=== PATIENT | female | born 1985 | race Caucasian/White ===

== ENCOUNTER → 2017-06-21 | Outpatient (CLI) | payer OTHER ==
--- NOTE | 2017-06-21 14:02 | REP ---
Clinical: Growth evaluation. Comparison: None . Findings: Examination demonstrates a single live intrauterine in cephalic presentation. motion is identified by technologist. Placenta is noted posteriorly and grade zero demonstrating complete placenta previa. Amniotic fluid volume is normal. Cervix measures 3.6 cm in length and appears closed. No evidence for nuchal cord. Gestational age by current measurements 18 weeks 5 days with XUAN 11/17/2017 . FHR equals 153 beats per minute. BPD 4.3 cm 18 weeks 6 days HC 16.9 cm 19 weeks 3 days AC 13.2 cm 18 weeks 5 days FL 2.7 cm 18 weeks 1 day HL 2.7 cm 18 weeks 5 days HC/AC ratio 1.28 Estimated weight 245 grams ( 38th percentile). Anatomical assessment is nondiagnostic due to technical factors and motion. Impression: Single live intrauterine in cephalic presentation. Posterior grade zero placenta with complete placenta previa. Anatomical assessment is incomplete and may warrant complete reevaluation. Signed by Sebastien Frausto MD 06/21/2017 01:53 P
== END ==
LOC: M RAD 12:14
PROVIDERS: ATTEND Obstetrics & Gynecology
DX: Z36 Encounter for antenatal screening of mother (principal); Z3A.18 18 weeks gestation of pregnancy

== ENCOUNTER → 2017-07-21 | Outpatient (CLI) | payer OTHER ==
--- NOTE | 2017-07-22 14:05 | REP ---
Clinical: Anatomical re-evaluation. Comparison: 06/21/2017 . Findings: Examination demonstrates a single live intrauterine in transverse (head to maternal left) presentation. motion is identified by technologist. Placenta is noted posteriorly and grade zero without evidence for placenta previa or abruption. Amniotic fluid volume is normal. Cervix measures 3.5 cm in length and appears closed. No evidence for nuchal cord. Gestational age by LMP 23 weeks 0 days with XUAN 11/17/2017 . Gestational age by current measurements 23 week 6 days with XUAN 11/11/2017 . FHR equals 146 beats per minute. Estimated weight 656 grams ( 77 percentile). Anatomical assessment demonstrates normal structures including cranium, choroid plexus, cavum, lungs, diaphragm, stomach, cord insertion/three-vessel cord, bladder, spine, and extremities. Impression: 1. Single live intrauterine in transverse lie demonstrating appropriate interval growth. 2. Limited evaluation of the posterior fossa, facial features, heart/ventricular outflow tracts and kidneys. Signed by Sebastien Frausto MD 07/22/2017 01:56 P
== END ==
LOC: M RAD 14:07
PROVIDERS: ATTEND Obstetrics & Gynecology
DX: Z36.9 Encounter for antenatal screening, unspecified (principal); Z3A.23 23 weeks gestation of pregnancy

== ENCOUNTER → 2017-08-19 | Outpatient (CLI) | payer OTHER, SELFPAY ==
--- NOTE | 2017-08-19 17:06 | REP ---
Obstetric sonography: History: Supervision of 27 weeks for anatomy. Comparison study July 21, 2017. Findings: Scanning demonstrates a viable single intrauterine gestation in a cephalic lie. motion is observed and heart rate is recorded at 140 beats per minute. The placenta is right lateral and posterior grade 1 without evidence of previa or abruption. Closed cervical length viewed transabdominally measures 3.9 cm. Amniotic fluid is subjectively normal. No extrauterine abnormalities observed. There has been greater than expected interval growth. Umbilical cord is seen draping over the shoulders and neck. Exam quality was inhibited by position and the patient body habitus. No anomaly is seen. The following anatomic structures are identified and felt to be unremarkable today: cranium, lungs, diaphragm, left-sided stomach, abdominal wall cord insertion, three-vessel cord, kidneys and bladder, upper and lower extremities. The four-chamber heart and outflow tract views and the face and profile views are still less than optimally seen. Cerebellum and posterior fossa and less than optimally seen. Biometry chart: BPD 7.7 cm = 30 weeks 6 days Head circumference 27.8 cm = 30 weeks 3 days Abdominal circumference 25.0 cm = 29 weeks 2 days Femur length 5.4 cm = 28 weeks 4 days Humeral length 5.3 cm = 30 weeks 6 days HC/AC ratio normal 1.11, cephalic index normal 0.78, estimated weight 1360 grams 2 pounds 15 ounces greater than 97th percentile for 27 weeks 1 day. MINA 7.2 cm S D ratio in the umbilical cord artery by Doppler is 2.19 (2.60-4.00). Impression: Viable single intrauterine gestation at 30 weeks with 0 days by today's composite criteria for expected gestational age estimate based on prior sonography is 27 weeks 1 day XUAN by prior sonography November 17, 2017. Estimated weight is in the 97th for 27 weeks 1 day. Less than optimal anatomic survey as above. Signed by Jhonatan Hoyos MD 08/19/2017 05:29 P
== END ==
LOC: M RAD 13:49
PROVIDERS: ATTEND Obstetrics & Gynecology
DX: Z36.2 Encounter for other antenatal screening follow-up (principal)

== ENCOUNTER → 2017-09-16 | Outpatient (CLI) | payer OTHER ==
--- NOTE | 2017-09-16 20:32 | REP ---
FOLLOWUP OBSTETRICAL ULTRASOUND: CLINICAL: Anatomical reevaluation and growth evaluation. COMPARISON: 08/19/2017 FINDINGS: Ultrasound examination demonstrates single live intrauterine in cephalic presentation. motion was identified by technologist. Placenta is noted posteriorly and grade 2 without evidence for placenta previa or abruption. Amniotic fluid volume is within normal limits. No evidence for nuchal cord. Gestational age by first ultrasound 31 weeks 1 day with estimated date of delivery 11/17/2017. Gestational age by current measurements 34 weeks 0 days with estimated date of delivery 10/28/2017. FHR 128 beats per minute. BPD 9.0 cm = 36 weeks 4 days HC 32.6 cm = 36 weeks 6 days AC 28.3 cm = 32 weeks 2 days FL 6.1 cm = 31 weeks 4 days HL 5.6 cm = 32 weeks 4 days HC/AC ratio 1.15. Estimated weight 2067 grams (79th percentile based on age by first ultrasound). Amniotic fluid index equals 9.1 cm (8.8 - 23.9 ). Anatomical assessment demonstrates normal cranium, choroid plexus, cavum, facial features, lungs, four-chamber heart, diaphragm, stomach, cord insertion/three-vessel cord, kidneys/bladder, and spine. IMPRESSION: Single live advanced gestation in cephalic presentation. Estimated weight is within normal limits. Amniotic fluid volume is lower limits of normal. No gross anatomical abnormalities are identified. Signed by Sebastien Frausto MD 09/17/2017 07:46 A
== END ==
LOC: M RAD 12:39
PROVIDERS: ATTEND Obstetrics & Gynecology
DX: Z34.82 Encounter for supervision of other normal pregnancy, second trimester (principal); Z3A.34 34 weeks gestation of pregnancy

== ENCOUNTER → 2017-10-14 | Outpatient (CLI) | payer OTHER | LOC: M RAD 12:12 | DX: O34.211 Maternal care for low transverse scar from previous cesarean delivery (principal); Z3A.35 35 weeks gestation of pregnancy | CPT/HCPCS: 76816 ==

== ENCOUNTER → 2017-10-25 | Outpatient (REF) | payer OTHER | LOC: M LAB REF 16:58 | DX: Z34.83 Encounter for supervision of other normal pregnancy, third trimester (principal) ==

== ENCOUNTER 2017-11-10 05:36 | Inpatient (IN) | payer OTHER ==
[2017-11-10] MEDS: LR 1,000 ML IV ×4 (06:45→15:00)
[2017-11-10 06:48] LABS: HEMATOCRIT 35.2 % (36.0-47.0); HEMOGLOBIN 11.9 g/dl (12.0-16.0); MEAN CORPUSCULAR HEMOGLOBIN 28.1 pg (27.0-33.0); MEAN CORPUSCULAR HGB CONC 33.8 g/dl (32.0-36.5); MEAN CORPUSCULAR VOLUME 83.2 fl (80.0-96.0); PLATELET COUNT, AUTOMATED 268 10^3/uL (150-450); RED BLOOD COUNT 4.23 10^6/uL (4.00-5.40); RED CELL DISTRIBUTION WIDTH 13.6 % (11.5-14.5); WHITE BLOOD COUNT 10.3 10^3/uL (4.0-10.0)
[2017-11-10 07:12] LABS: AMPHETAMINES URINE REFLEX NEGATIVE (NEGATIVE); BARBITURATES URINE REFLEX NEGATIVE (NEGATIVE); BENZODIAZEPINES URINE REFLEX NEGATIVE (NEGATIVE); CANNABINOIDS URINE REFLEX NEGATIVE (NEGATIVE); COCAINE METABOLITE URINE REFLE NEGATIVE (NEGATIVE); METHADONE URINE REFLEX NEGATIVE (NEGATIVE); OPIATES URINE REFLEX NEGATIVE (NEGATIVE); PHENCYCLIDINE URINE REFLEX NEGATIVE (NEGATIVE)
[2017-11-10] MEDS ORDERED: OXYTOCIN INJ 10 UNITS/ML VIAL (J2590) As Ordered ×4 (07:20→09:40)
[2017-11-10] MEDS ORDERED: MORPHINE PRES-FREE INJ 10 MG/10 ML VIAL (J2274) As Ordered (07:23)
[2017-11-10] MEDS ORDERED: LIDOCAINE 1% SDV INJ 30 ML VIAL As Ordered (07:29)
[2017-11-10] MEDS: BICITRA 30ML SOLN UDC PO (07:46)
[2017-11-10] MEDS ORDERED: MIDAZOLAM INJ 2 MG/2 ML VIAL (J2250) As Ordered (08:34)
[2017-11-10] MEDS ORDERED: fentaNYL 100 MCG/2 ML INJECTION (J3010) As Ordered ×3 (08:35→10:37)
[2017-11-10] MEDS: PRENATAL VITAMINS CHEWABLE TABLET PO (09:00)
[2017-11-10] MEDS ORDERED: dexameTHASONE 4 MG/ML 1ML VIAL (J1100) As Ordered ×2 (09:06)
[2017-11-10] MEDS ORDERED: ROCURONIUM BROMIDE 50 MG/5 ML VIAL As Ordered (09:29)
[2017-11-10] MEDS ORDERED: SUCCINYLCHOLINE 100 MG/5 ML SYRINGE (J0330) As Ordered (09:29)
[2017-11-10 09:35] LABS: CORD GAS ABE V -8.9; CORD GAS HCO3 V 20.5 MEQ/L; CORD GAS O2 SAT V 63.4 %; CORD GAS PCO2 V 57.4 mmHg; CORD GAS PO2 V 31.3 mmHg; CORD GAS SBC V 16.7 MEQ/L; CORD GAS TCO2 V 22.2 MEQ/L
[2017-11-10] MEDS ORDERED: ONDANSETRON 4MG/2ML VIAL (J2405) As Ordered ×2 (09:39→12:19)
[2017-11-10] MEDS ORDERED: PROPOFOL 200 MG/20 ML VIAL As Ordered ×2 (10:10)
[2017-11-10] MEDS ORDERED: ONDANSETRON 4MG/2ML VIAL (J2405) IV (10:45)
[2017-11-10] MEDS ORDERED: RHOGAM 300 MCG (1500 IU) INJ (J2790) IM (10:45)
[2017-11-10] MEDS ORDERED: KETOROLAC 30 MG/ML VIAL (J1885) As Ordered (11:28)
[2017-11-10] MEDS: KETOROLAC 30 MG/ML VIAL (J1885) IV ×3 (11:30→23:40)
[2017-11-10] MEDS ORDERED: HYDROmorphone HCL 1 MG/ML SYRINGE (J1170) As Ordered (11:35)
[2017-11-10] MEDS: HYDROmorphone HCL 1 MG/ML SYRINGE (J1170) IV ×2 (11:37→11:50)
[2017-11-10] MEDS ORDERED: METOCLOPRAMIDE INJ 10MG/2ML VIAL (J2765) As Ordered (12:20)
[2017-11-10] MEDS: ONDANSETRON 4MG/2ML VIAL (J2405) IV (12:24)
[2017-11-10] MEDS: METOCLOPRAMIDE INJ 10MG/2ML VIAL (J2765) IV (12:24)
[2017-11-10] MEDS ORDERED: fentaNYL 100 MCG/2 ML INJECTION (J3010) IV (12:30)
[2017-11-10] MEDS ORDERED: KETOROLAC 30 MG/ML VIAL (J1885) IV (12:30)
[2017-11-10] MEDS ORDERED: OXYTOCIN 30 UNITS IN 0.9% NaCl 500ML IV BAG (J2590) As Ordered (12:35)
[2017-11-10] MEDS: OXYTOCIN DRIP 30 UNITS in APPROPRIATE DILUENT 1 EA IV (13:40)
[2017-11-10] MEDS: PERCOCET 5MG/325MG TAB PO (21:57)
[2017-11-11] MEDS ORDERED: SLF 3 ML SYR IV
[2017-11-11] MEDS: PERCOCET 5MG/325MG TAB PO ×4 (02:37→16:28)
[2017-11-11] MEDS: KETOROLAC 30 MG/ML VIAL (J1885) IV (04:58)
[2017-11-11] MEDS: SLF 3 ML SYR IV ×3 (04:59→22:00)
[2017-11-11 05:46] LABS: HEMATOCRIT 27.9 % (36.0-47.0); MEAN CORPUSCULAR HGB CONC 33.3 g/dl (32.0-36.5); PLATELET COUNT, AUTOMATED 209 10^3/uL (150-450); RED BLOOD COUNT 3.32 10^6/uL (4.00-5.40); WHITE BLOOD COUNT 11.3 10^3/uL (4.0-10.0)
[2017-11-11 05:49] LABS: HEMOGLOBIN 9.3 g/dl (12.0-16.0)
[2017-11-11] MEDS: PRENATAL VITAMINS CHEWABLE TABLET PO (07:52)
[2017-11-11] MEDS: IBUPROFEN 800 MG TAB PO ×2 (13:30→21:05)
[2017-11-11] MEDS: DOCUSATE SODIUM 100 MG CAP PO (21:05)
[2017-11-12] MEDS: IBUPROFEN 800 MG TAB PO ×3 (05:40→20:50)
[2017-11-12] MEDS: SLF 3 ML SYR IV (06:00)
[2017-11-12] MEDS: PRENATAL VITAMINS CHEWABLE TABLET PO (08:14)
[2017-11-12] MEDS: DOCUSATE SODIUM 100 MG CAP PO (20:55)
[2017-11-13] MEDS: IBUPROFEN 800 MG TAB PO (04:42)
[2017-11-13] MEDS: PRENATAL VITAMINS CHEWABLE TABLET PO (08:07)
[2017-11-13] MEDS: MEASLES,MUMPS,RUBELLA VACCINE INJ (MMR-II) (90707) SC (08:26)
== END 2017-11-13 12:40 | disposition home or self-care (01) | DRG 541 ==
LOC: M LDI 05:36 → M OBS 11-11 14:00 → M PCU 13:46
PROVIDERS: Obstetrics & Gynecology
PROC: 10E0XZZ Delivery of Products of Conception, External Approach (ICD-10-PCS; principal; 2017-11-10 07:30)
PROC: 0UB70ZZ Excision of Bilateral Fallopian Tubes, Open Approach (ICD-10-PCS; 2017-11-10 07:30)
DX: O34.211 Maternal care for low transverse scar from previous cesarean delivery (principal); Z30.2 Encounter for sterilization; Z37.0 Single live birth; Z3A.39 39 weeks gestation of pregnancy